=== PATIENT | female | born 1965 | race Two or more races ===

== ENCOUNTER 2022-09-20 17:54 | Emergency (ER) | payer OTHER ==
[~2022-09-20] VITALS: Ht 172.7 cm; Wt 109.3 kg
--- NOTE | 2022-09-20 18:34 | NUR ---
BIBSelf, C/O HEAD ACHE AND HTN
[2022-09-20] MEDS ORDERED: AMLODIPINE BESYLATE 5 MG TABLET ONE ×2 (18:55→19:23)
[2022-09-20] MEDS: ENALAPRILAT INJ (1.25 MG/ML) 1.25 MG/ML VIAL IV PRN ×3 (18:55→19:03)
[2022-09-20] MEDS ORDERED: ENALAPRILAT INJ (1.25 MG/ML) 1.25 MG/ML VIAL IV ONE ×2 (18:55→19:23)
[2022-09-20] MEDS ORDERED: AMLODIPINE BESYLATE 5 MG TABLET PO ONE (19:00)
--- NOTE | 2022-09-20 19:03 | NUR ---
IV GAUGE 20 R HAND
--- NOTE | 2022-09-20 19:04 | NUR ---
nORVASC 5 MG PO ADMIN - NO ASPIRATION NOTED, VASOTEC (ENALAPRIVAT 1.25 ) ADMIN IV ONE TIME PER ORDER PUSH IV
[2022-09-20 19:21] LABS: CALCIUM, SERUM 8.8 mg/dL (8.5-10.1); CARBON DIOXIDE 27 mmol/L (21-32); CHLORIDE 107 mmol/L (98-107); CREATININE 1.3 mg/dL (0.6-1.3); GLUCOSE 91 mg/dL (74-106); POTASSIUM 3.9 mmol/L (3.5-5.1); SODIUM SERUM 140 mmol/L (136-145); UREA NITROGEN, BLOOD 16 mg/dL (7-18)
--- NOTE | 2022-09-20 19:22 | NUR ---
SECOND ORDER OF BOTH MEDICATIONS NORVASC 5 MG PO AND VASOTEC IV PUSH ADMIN
--- NOTE | 2022-09-20 19:30 | NUR ---
RECEIVED REPORT FROM HAYLEE OBRIEN. PATIENT CAME INTIALLY D/T HEADACHE. PATIENT IS KNOWN HTN. WITH IV CANNULA G20 ON RIGHT HAND. AAOX4. ABLE TO MAKE NEEDS KNOWN. ATTACHED TO MONITOR. VITALS CHECKED.
[2022-09-20 20:12] LABS: BASOPHILS # (AUTO) 0.1 K/uL (0.0-0.2); BASOPHILS % (AUTO) 1.3 % (0.0-2.0); EOSINOPHILS % (AUTO) 2.8 % (0.0-6.0); HEMATOCRIT 38 % (33-45); HEMOGLOBIN 12.5 g/dL (11.5-14.8); LYMPHOCYTES # (AUTO) 3.3 K/uL (0.8-4.8); LYMPHOCYTES % (AUTO) 40.6 % (20.0-44.0); MEAN CORPUSCULAR HGB CONC 33 g/dl (31.0-36.0); MEAN CORPUSCULAR VOLUME 90 fL (82-100); MONOCYTES # (AUTO) 0.8 K/uL (0.1-1.30); MONOCYTES % (AUTO) 9.5 % (2.0-12.0); NEUTROPHILS # (AUTO) 3.7 K/uL (1.8-8.9); NEUTROPHILS % (AUTO) 45.8 % (43.0-81.0); PLATELET COUNT (AUTO) 286 K/uL (150-450); WHITE BLOOD COUNT (AUTO) 8.2 K/uL (4.3-11.0)
[2022-09-20] MEDS ORDERED: AMLO-212 PO (20:28)
[2022-09-20] MEDS ORDERED: BENA40TA8 PO (20:28)
[2022-09-20 22:11] VITALS: BP 157/93
--- NOTE | 2022-09-20 22:11 | NUR ---
IV CANNULA REMOVED
--- NOTE | 2022-09-20 22:11 | NUR ---
Patient discharged to home in stable condition. Written and verbal after care instructions given. Patient verbalizes understanding of instruction.
== END 2022-09-20 22:12 | disposition home or self-care (01) ==
LOC: ER 18:03
DX: I10 Essential (primary) hypertension (principal); Z79.899 Other long term (current) drug therapy
CPT/HCPCS: 99285; 96374; 71045; 93005; 85025; 80048; 36415; 84484; J3490 ×2